=== PATIENT | female | born 1965 | race Caucasian/White ===

== ENCOUNTER → 2017-06-04 | Outpatient (CLI) | payer OTHER ==
[~2017-06-04] MED LIST: ATV5 PO; CHOL1000 PO; LEVO-240 PO; MAGN400T6 PO
== END | disposition home or self-care (01) ==
LOC: C.PATHSPEC 16:40
PROVIDERS: ATTEND Dermatology
DX: D22.72 Melanocytic nevi of left lower limb, including hip (principal)

== ENCOUNTER → 2017-07-24 | Outpatient (CLI) | payer OTHER | END | disposition home or self-care (01) | LOC: C.PATHSPEC 17:29 | PROVIDERS: ATTEND Plastic Surgery | DX: L98.9 Disorder of the skin and subcutaneous tissue, unspecified (principal) ==

== ENCOUNTER → 2017-10-15 | Outpatient (CLI) | payer OTHER ==
--- NOTE | 2017-10-15 10:10 | DIAGNOSTIC IMAGING REPORT ---
R WRIST MIN 3 VIEWS ROUTINE CLINICAL HISTORY: Right wrist pain COMPARISON: None. DISCUSSION: No fractures or dislocations are visualized. A longitudinal lucency within the distal radial metaphysis is felt to represent a prominent trabecular marking. IMPRESSION: No fractures or dislocations identified. Electronically signed by: Juma Sharma M.D. 10/15/2017 10:08 AM Dictated Date/Time: 10/15/2017 10:07 AM
== END | disposition home or self-care (01) ==
LOC: C.RADBC 09:33
PROVIDERS: ATTEND Family Medicine
DX: M25.531 Pain in right wrist (principal)

== ENCOUNTER → 2017-10-28 | Outpatient (CLI) | payer OTHER ==
--- NOTE | 2017-10-28 09:46 | DIAGNOSTIC IMAGING REPORT ---
R WRIST MIN 3 VIEWS ROUTINE CLINICAL HISTORY: PAIN IN RIGHT WRIST pain COMPARISON: None. DISCUSSION: The bones and joint spaces appear intact. There is no evidence of fracture, dislocation or bony disease. There is no evidence for soft tissue swelling. IMPRESSION: Negative study. The above report was generated using voice recognition software. It may contain grammatical, syntax or spelling errors. Electronically signed by: Ravindra Nuñez M.D. 10/28/2017 9:44 AM Dictated Date/Time: 10/28/2017 9:44 AM
== END | disposition home or self-care (01) ==
LOC: C.RADBC 09:24
PROVIDERS: ATTEND Family Medicine
DX: M25.531 Pain in right wrist (principal)

== ENCOUNTER → 2017-12-24 | Outpatient (CLI) | payer OTHER | END | disposition home or self-care (01) | LOC: C.PATHSPEC 16:26 | PROVIDERS: ATTEND Physician Assistant | DX: D22.9 Melanocytic nevi, unspecified (principal) ==

== ENCOUNTER → 2018-01-03 | Outpatient (CLI) | payer OTHER ==
[2018-01-03 15:04] LABS: INFLUENZA B ANTIGEN Neg for Influ B (NEG)
== END | disposition home or self-care (01) ==
LOC: C.LABSPEC 13:37
PROVIDERS: ATTEND Family Medicine
DX: J02.9 Acute pharyngitis, unspecified (principal)

== ENCOUNTER → 2018-03-13 | Outpatient (CLI) | payer OTHER | END | disposition home or self-care (01) | LOC: C.PATHSPEC 17:25 | PROVIDERS: ATTEND Plastic Surgery | DX: D22.5 Melanocytic nevi of trunk (principal) ==

== ENCOUNTER 2018-03-26 14:28 | Emergency (ER) | payer OTHER ==
[~2018-03-26] VITALS: Ht 170.2 cm; Wt 106.2 kg
[2018-03-26 14:31] VITALS: TEMP 36.6; Ht 170.2 cm; Wt 106.2 kg
[2018-03-26] MEDS ORDERED: DIPHTHERIA/TETANUS/PERTUSSIS 0.5 ML SYR/VIAL IM. ONE (15:00)
[2018-03-26] MEDS ORDERED: RABIES VACCINE (IMOVAX) HUMAN DIPL CELL 2.5 INTER.UNIT/ML SYR IM. ONE (15:00)
[2018-03-26] MEDS ORDERED: RABIES IMMUNE GLOBULIN (HUMAN) 150 INTER.UNIT/ML 2 ML VIAL IM. ONE (15:00)
[2018-03-26] MEDS ORDERED: BUPR150T7 PO (15:09)
[2018-03-26] MEDS ORDERED: ADVIN50/60 INH (15:09)
[2018-03-26] MEDS ORDERED: CYAN100T PO (15:09)
[2018-03-26] MEDS ORDERED: CLON0.5T PO (15:09)
[2018-03-26] MEDS ORDERED: FLUT0.15 (15:09)
[2018-03-26] MEDS ORDERED: MONT1TAB3 PO (15:09)
--- NOTE | 2018-03-26 16:16 | EMERGENCY ROOM VISIT NOTE ---
ED Visit Note First contact with patient: 14:35 CHIEF COMPLAINT: "Possible exposure to rabies". HISTORY OF PRESENT ILLNESS: This 52-year-old female patient presents to the emergency department via private vehicle. There is concern for rabies exposure this past night as she awoke this morning and there was a bat flying around her bedroom. She was unable to capture the bat. There are no bites or scratches that she is aware of. Tetanus is not up-to-date. No recent illness. REVIEW OF SYSTEMS: A 6 system review of systems was completed with positives and pertinent negatives listed in the HPI. ALLERGIES: As noted below MEDICATIONS: As noted below PMH: No pertinent. SOCIAL HISTORY: Patient is employed and lives locally.. PHYSICAL EXAM: Vital Signs: Reviewed Nurse's notes, vital signs stable. GENERAL : 52-year-old female, in no acute distress, well-developed, well-nourished. HEAD: Atraumatic. EYES: Sclera anicteric. SKIN: Within normal limits without petechial rash. MUSCULOSKELETAL: Motor functions grossly intact. EMERGENCY DEPARTMENT COURSE: I examined the patient. She awoke today with a bat flying around her room. Concern is that that was not able to be captured, and she was asleep with it in the room and is unknown if it made contact with her. Patient was given the Imovax vaccination being 2.5 in interunit, as well as 2123 interunit of the immunoglobulin. The patient was observed for greater than 20 minutes with no reaction. The patient was discharged home in stable condition with education regarding follow-up and worrisome symptoms which to return. Problem List Medical Problems: (1) GI bleed Status: Resolved (2) Hypokalemia Status: Resolved Current/Historical Medications Scheduled Bupropion Hcl (Wellbutrin Sr), 1 TAB PO DAILY Cyanocobalamin (Vitamin B-12), 100 MCG PO DAILY Fluticasone Prop/Salmeterol (Advair Diskus 500/50 60 Dose), 1 PUFFS INH BID Montelukast Sodium (Singulair), 1 TAB PO HS Scheduled PRN Clonazepam (Klonopin), 0.25 TAB PO DAILY PRN for Anxiety Miscellaneous Medications Fluticasone Propionate (Nasal) (Flonase Allergy Relief) Allergies Coded Allergies: Drospirenone (Unverified Allergy, Intermediate, rash, 03/26/18) Ethinyl Estradiol (Unverified Allergy, Intermediate, rash, 03/26/18) Sulfa Antibiotics (Verified Allergy, Unknown, rash, 03/26/18) Tramadol (Unverified Adverse Reaction, Unknown, HEADACHE, 03/26/18) Vital Signs Date Time Temp Pulse Resp B/P (MAP) Pulse Ox O2 Delivery O2 Flow Rate FiO2 03/26/18 16:28 70 18 184/100 97 03/26/18 14:31 36.6 67 20 139/93 94 Room Air Medications Administered Medications (Trade) Dose Ordered Sig/Renzo Route Start Time Stop Time Status Last Admin Dose Admin Rabies Vaccine Human Diploid Cell (Imovax Rabies) 2.5 interunit ONCE ONCE IM. 03/26/18 15:00 03/26/18 15:01 DC 03/26/18 15:38 2.5 INTERUNIT Rabies Immune Globulin (Imogam Rabies Inj) 2,124 interunit ONCE ONCE IM. 03/26/18 15:00 03/26/18 15:01 DC 03/26/18 15:39 2,124 INTERUNIT Diphtheria/ Pertussis/Tetanus Vacc (Adacel Inj) 0.5 ml ONCE ONCE IM. 03/26/18 15:00 03/26/18 15:01 DC 03/26/18 15:37 0.5 ML Departure Information Impression Primary Impression: Need for post exposure prophylaxis for rabies Dispostion Home / Self-Care Condition GOOD Referrals Brad Nuñez DO (PCP) Patient Instructions My [facility] Additional Instructions DISCHARGE INSTRUCTIONS: Today is day 0. Return to the ER on days 3, 7, 14, and 28 for subsequent vaccinations. This is March 29, and . Please watch for signs of reaction to include redness, swelling, drainage, fever, chills, nausea, vomiting and please return. Please return with any new/concerning symptoms.
[2018-03-26 16:28] VITALS: BP 184/100; PULSE 70; O2SAT 97
== END 2018-03-26 16:28 | disposition home or self-care (01) ==
LOC: C.EDB 14:29 → C.EDD 16:28
DX: Z23 Encounter for immunization (principal); Z20.3 Contact with and (suspected) exposure to rabies; Z79.899 Other long term (current) drug therapy; Z88.2 Allergy status to sulfonamides; Z88.8 Allergy status to other drugs, medicaments and biological substances

== ENCOUNTER 2018-03-29 07:54 | Emergency (ER) | payer OTHER ==
[~2018-03-29] VITALS: Ht 170.2 cm; Wt 110.0 kg
[~2018-03-29 07:54] MED LIST changes: +ADVIN50/60 INH; +BUPR150T7 PO; +CLON0.5T PO; +CYAN100T PO; +FLUT0.15; +MONT1TAB3 PO
[2018-03-29 07:59] VITALS: TEMP 36.7; Ht 170.2 cm; Wt 110.0 kg
--- NOTE | 2018-03-29 08:11 | EMERGENCY ROOM VISIT NOTE ---
History First contact with patient: 08:01 Chief Complaint: RABIES VACCINE REPEAT VISIT Stated Complaint: RABIES SHOT (HERE 03/26 FOR FIRST SERIES) History of Present Illness The patient is a 52 year old female who presents to the Emergency Room for her second Imovax injection. The patient denies any adverse reactions to her previous injections. The patient was exposed to a bat flying around in her room upon awakening. Review of Systems 6 system review was performed and was negative except for pertinent positives and negatives as indicated in history of present illness Past Medical/Surgical History Medical Problems: (1) GI bleed (2) Hypokalemia (3) No Known Active Medical Problems Social History Smoking Status: Never Smoker Marital Status: single Occupation Status: employed Current/Historical Medications Scheduled Bupropion Hcl (Wellbutrin Sr), 1 TAB PO DAILY Cyanocobalamin (Vitamin B-12), 100 MCG PO DAILY Fluticasone Prop/Salmeterol (Advair Diskus 500/50 60 Dose), 1 PUFFS INH BID Montelukast Sodium (Singulair), 1 TAB PO HS Scheduled PRN Clonazepam (Klonopin), 0.25 TAB PO DAILY PRN for Anxiety Miscellaneous Medications Fluticasone Propionate (Nasal) (Flonase Allergy Relief) Physical Exam Vital Signs Date Time Temp Pulse Resp B/P (MAP) Pulse Ox O2 Delivery O2 Flow Rate FiO2 03/29/18 07:59 36.7 69 20 134/84 95 Room Air Physical Exam CONSTITUTIONAL: Healthy and well nourished. Alert and oriented X 3 with positive affect. HEENT: Normocephalic, atraumatic. Pupils equal, round and reactive. INTEGUMENTARY: No rash or other significant dermatologic conditions noted. NEUROLOGIC: No focal neurologic deficits noted. Medical Decision & Procedures ED Course Vital signs were reviewed and were normal. The patient was administered Imovax without adverse reaction. Patient will return next Saturday for her third Imovax injection, sooner with any adverse reaction. Medical Decision Blood Pressure Screening Patient's blood pressure: Normal blood pressure Impression Primary Impression: Rabies, need for prophylactic vaccination against Departure Information Dispostion Home / Self-Care Forms HOME CARE DOCUMENTATION FORM, IMPORTANT VISIT INFORMATION Patient Instructions My [facility] Additional Instructions Return on 04/02 for your next Imovax injection
[2018-03-29] MEDS ORDERED: RABIES VACCINE (IMOVAX) HUMAN DIPL CELL 2.5 INTER.UNIT/ML SYR IM. ONE (08:15)
[2018-03-29 08:34] VITALS: BP 126/74; PULSE 65; O2SAT 96
== END 2018-03-29 08:37 | disposition home or self-care (01) ==
LOC: C.EDB 07:55
DX: Z23 Encounter for immunization (principal); Z79.899 Other long term (current) drug therapy

== ENCOUNTER 2018-04-02 08:00 | Emergency (ER) | payer OTHER ==
[~2018-04-02] VITALS: Ht 170.2 cm; Wt 110.0 kg
[~2018-04-02 08:00] MED LIST changes: -ATV5 PO; -CHOL1000 PO; -FLUT0.15; +FLUT0.15 NAE; -LEVO-240 PO; -MAGN400T6 PO
[2018-04-02 08:04] VITALS: Ht 170.2 cm; Wt 110.0 kg
[2018-04-02] MEDS ORDERED: WLL100 PO (08:18)
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
[2018-04-02] MEDS ORDERED: RABIES VACCINE (IMOVAX) HUMAN DIPL CELL 2.5 INTER.UNIT/ML SYR IM. ONE (08:30)
[2018-04-02 08:47] VITALS: BP 128/80; PULSE 68; TEMP 36.7; O2SAT 96
== END 2018-04-02 08:57 | disposition home or self-care (01) ==
LOC: C.EDB 08:01 → C.EDA 08:57
DX: Z23 Encounter for immunization (principal); Z20.3 Contact with and (suspected) exposure to rabies; Z79.899 Other long term (current) drug therapy; Z88.2 Allergy status to sulfonamides; Z88.8 Allergy status to other drugs, medicaments and biological substances; F41.9 Anxiety disorder, unspecified; J45.909 Unspecified asthma, uncomplicated

== ENCOUNTER 2018-04-09 08:39 | Emergency (ER) | payer OTHER ==
[~2018-04-09] VITALS: Ht 170.2 cm; Wt 109.6 kg
[~2018-04-09 08:39] MED LIST changes: -BUPR150T7 PO; +WLL100 PO
[2018-04-09] MEDS ORDERED: RABIES VACCINE (IMOVAX) HUMAN DIPL CELL 2.5 INTER.UNIT/ML SYR IM. ONE (08:45)
[2018-04-09 08:46] VITALS: TEMP 37; Ht 170.2 cm; Wt 109.6 kg
[2018-04-09 09:22] VITALS: BP 170/99; PULSE 67; O2SAT 97
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
== END 2018-04-09 09:41 | disposition home or self-care (01) ==
LOC: C.EDB 08:40
DX: Z23 Encounter for immunization (principal); Z20.3 Contact with and (suspected) exposure to rabies; J45.909 Unspecified asthma, uncomplicated